=== PATIENT | female | born 1980 | race Two or more races ===

== ENCOUNTER 2017-06-06 13:52 | Outpatient (CLI) ==
[2017-06-06 14:03] LABS: BASOPHILS % (AUTO) 0.2 % (0.0-3.0); EOSINOPHILS # (AUTO) 0.2 K/ul (0.0-0.7); EOSINOPHILS % (AUTO) 1.3 % (0.0-7.0); HEMATOCRIT 39.7 % (37.0-47.0); HEMOGLOBIN 13.2 g/dl (12.0-16.0); IMMATURE GRANULOCYTE % (AUTO) 0.2 % (0.0-5.0); LYMPHOCYTES # (AUTO) 3.5 K/uL (0.60-3.4); MEAN CORPUSCULAR HEMOGLOBIN 30.8 pg (27.0-31.0); MEAN CORPUSCULAR HGB CONC 33.2 (31.8-35.4); MEAN CORPUSCULAR VOLUME 92.5 fl (81.0-99.0); MONOCYTES # (AUTO) 0.8 K/uL (0.4-2.0); MONOCYTES % (AUTO) 7.1 (0-10); NEUTROPHILS # (AUTO) 6.8 K/ul (2.0-6.9); NEUTROPHILS % (AUTO) 60.2; PLATELET COUNT 142 10^3/uL (140-440); RED BLOOD COUNT 4.29 10^6/ul (4.20-5.40); WHITE BLOOD COUNT 11.34 K/ul (4.6-10.2)
[2017-06-06 14:21] LABS: ALBUMIN 3.6 g/dL (3.4-5.0); ALBUMIN/GLOBULIN RATIO 1.29; ANION GAP 15.7; BILIRUBIN,TOTAL 1.55 mg/dL (0.00-1.20); BUN/CREATININE RATIO 17.18; CALCIUM 9.2 mg/dL (8.2-10.2); CREATININE 0.64 mg/dL (0.60-1.30); MAGNESIUM 1.8 mg/dL (1.7-2.2); POTASSIUM 3.7 mmol/L (3.5-5.10); TOTAL PROTEIN 6.4 g/dL (6.4-8.2)
[2017-06-06 14:37] LABS: PROTHROMBIN TIME 20.6 SEC (9.3-11.0)
[2017-06-07 07:22] LABS: GAMMA GLUTAMYL TRANSFERASE 64 IU/L (0-60)
== END 2017-06-06 13:53 | disposition home or self-care (01) ==
LOC: NONPT 13:52
PROVIDERS: ATTEND Transplant Surgery
DX: Z94.4 Liver transplant status (principal)
CPT/HCPCS: 80053; 80197; 82977; 83735; 85025; 85610

== ENCOUNTER 2017-06-13 12:01 | Outpatient (CLI) ==
[2017-06-13 12:11] LABS: BASOPHILS # (AUTO) 0.1 K/uL (0-0.2); BASOPHILS % (AUTO) 0.7 % (0.0-3.0); EOSINOPHILS # (AUTO) 0.1 K/ul (0.0-0.7); EOSINOPHILS % (AUTO) 0.6 % (0.0-7.0); HEMATOCRIT 38.3 % (37.0-47.0); HEMOGLOBIN 12.7 g/dl (12.0-16.0); IMMATURE GRANULOCYTE % (AUTO) 0.2 % (0.0-5.0); LYMPHOCYTES % (AUTO) 31.2 (10.0-50.0); MEAN CORPUSCULAR HEMOGLOBIN 30.2 pg (27.0-31.0); MEAN CORPUSCULAR HGB CONC 33.2 (31.8-35.4); MEAN CORPUSCULAR VOLUME 91.2 fl (81.0-99.0); MONOCYTES # (AUTO) 0.7 K/uL (0.4-2.0); MONOCYTES % (AUTO) 7.1 (0-10); NEUTROPHILS # (AUTO) 5.7 K/ul (2.0-6.9); NEUTROPHILS % (AUTO) 60.2; PLATELET COUNT 113 10^3/uL (140-440); WHITE BLOOD COUNT 9.54 K/ul (4.6-10.2)
[2017-06-13 12:28] LABS: PROTHROMBIN TIME 18.3 SEC (9.3-11.0)
[2017-06-13 12:33] LABS: ALBUMIN 3.8 g/dL (3.4-5.0); ALBUMIN/GLOBULIN RATIO 1.41; ANION GAP 12.5; BILIRUBIN,TOTAL 1.22 mg/dL (0.00-1.20); BUN/CREATININE RATIO 15.62; CALCIUM 9.4 mg/dL (8.2-10.2); CREATININE 0.64 mg/dL (0.60-1.30); POTASSIUM 3.5 mmol/L (3.5-5.10); TOTAL PROTEIN 6.5 g/dL (6.4-8.2)
== END 2017-06-13 12:02 | disposition home or self-care (01) ==
LOC: NONPT 12:01
PROVIDERS: ATTEND Transplant Surgery
DX: Z51.81 Encounter for therapeutic drug level monitoring (principal); Z79.01 Long term (current) use of anticoagulants; Z48.23 Encounter for aftercare following liver transplant; K72.90 Hepatic failure, unspecified without coma; K83.0 Cholangitis; Z92.25 Personal history of immunosuppression therapy
CPT/HCPCS: 80053; 80197; 82977; 85025; 85610

== ENCOUNTER 2017-06-20 10:47 | Outpatient (CLI) ==
[2017-06-20 12:22] LABS: BASOPHILS % (AUTO) 0.5 % (0.0-3.0); EOSINOPHILS % (AUTO) 0.7 % (0.0-7.0); HEMATOCRIT 39.1 % (37.0-47.0); HEMOGLOBIN 13.1 g/dl (12.0-16.0); IMMATURE GRANULOCYTE % (AUTO) 0.2 % (0.0-5.0); LYMPHOCYTES # (AUTO) 2.1 K/uL (0.60-3.4); LYMPHOCYTES % (AUTO) 36.1 (10.0-50.0); MEAN CORPUSCULAR HEMOGLOBIN 30.7 pg (27.0-31.0); MEAN CORPUSCULAR HGB CONC 33.5 (31.8-35.4); MEAN CORPUSCULAR VOLUME 91.6 fl (81.0-99.0); MONOCYTES # (AUTO) 0.5 K/uL (0.4-2.0); MONOCYTES % (AUTO) 9.4 (0-10); NEUTROPHILS # (AUTO) 3.1 K/ul (2.0-6.9); NEUTROPHILS % (AUTO) 53.1; PLATELET COUNT 126 10^3/uL (140-440); RED BLOOD COUNT 4.27 10^6/ul (4.20-5.40); WHITE BLOOD COUNT 5.76 K/ul (4.6-10.2)
[2017-06-20 12:37] LABS: PROTHROMBIN TIME 13.9 SEC (9.3-11.0)
[2017-06-20 12:42] LABS: ALBUMIN 4.1 g/dL (3.4-5.0); ALBUMIN/GLOBULIN RATIO 1.46; ANION GAP 21.6; BILIRUBIN,TOTAL 1.04 mg/dL (0.00-1.20); BUN/CREATININE RATIO 17.39; CALCIUM 9.6 mg/dL (8.2-10.2); CREATININE 0.69 mg/dL (0.60-1.30); POTASSIUM 3.6 mmol/L (3.5-5.10); TOTAL PROTEIN 6.9 g/dL (6.4-8.2)
== END 2017-06-20 10:48 | disposition home or self-care (01) ==
LOC: NONPT 10:47
PROVIDERS: ATTEND Transplant Surgery
DX: Z51.81 Encounter for therapeutic drug level monitoring (principal); Z79.01 Long term (current) use of anticoagulants; K72.90 Hepatic failure, unspecified without coma; K83.0 Cholangitis; Z79.52 Long term (current) use of systemic steroids; Z48.23 Encounter for aftercare following liver transplant
CPT/HCPCS: 80053; 80197; 82977; 85025; 85610